=== PATIENT | female | born 1995 | race Caucasian/White ===

== ENCOUNTER 2022-08-11 16:26 | Emergency (ER) | payer OTHER ==
[2022-08-11 16:33] VITALS: BP 99/65; PULSE 78; RESP 18; TEMP 98.4; BMI 24.7
[2022-08-11] MEDS ORDERED: DIPHTH,PERTUSS(ACELL),TET 0.5 ML DISP.SYRIN IM ONE ×2 (17:18→17:22)
== END 2022-08-11 18:43 | disposition home or self-care (01) ==
LOC: JERFT 16:26 → JER 16:26 → JERFT 18:43
PROC: 0HQ1XZZ Repair Face Skin, External Approach (ICD-10-PCS; principal; 2022-08-11)
DX: S01.81XA Laceration without foreign body of other part of head, initial encounter (principal); W22.8XXA Striking against or struck by other objects, initial encounter
CPT/HCPCS: 99282-25

== ENCOUNTER 2022-08-18 14:37 | Emergency (ER) | payer OTHER ==
[2022-08-18 14:53] VITALS: BP 94/47; PULSE 70; RESP 18; TEMP 98; BMI 23.3
== END 2022-08-18 15:38 | disposition home or self-care (01) ==
LOC: JERFT 14:37 → JER 14:37 → JERFT 15:38
DX: Z48.02 Encounter for removal of sutures (principal)
CPT/HCPCS: 99283-25